=== PATIENT | male | born 1960 | race Caucasian/White ===

== ENCOUNTER 2023-01-01 20:12 | Emergency (ER) | payer OTHER ==
--- NOTE | 2023-01-01 20:15 | ERPHSYRPT ---
- History of Present Illness Time Seen by Provider: 01/01/23 20:14 Historian: patient Exam Limitations: no limitations Physician History: Pt c/o chest pain; a few episodes during last few weeks. Pain located left chest. + radiation to right chest Described as tightness Both at rest and on exertion, but worse w/ exertion Possible TIA last week Room spinning while putting a futon together Feels like heart is racing Chest tightness for the past hour No ASA or Nitro taken today No cardiac hx No swelling No focal weakness, speech difficulties, numbness/tingling Timing/Duration: today Activities at Onset: activity (putting a futon together) Quality: tightness Location: central Chest Pain Radiation: no radiation Severity of Pain-Max: moderate Severity of Pain-Current: moderate Modifying Factors: Improves With: rest. Worsens With: exertion Associated Symptoms: palpitations, fatigue, weakness, headache, dizziness, No nausea, No vomiting, No shortness of breath, No cough, No diaphoresis, No chills, No fever Prior Chest Pain/Cardiac Workup: no prior chest pain, no prior cardiac workup Nitro Today/Relief: no nitro taken today Aspirin Treatment Today: 81 mg x 1, provided at home Allergies/Adverse Reactions: No Known Drug Allergies Allergy (Unverified 01/01/23 20:34) Home Medications: Aspirin EC 81 mg [Ecotrin 81 mg] 81 mg PO DAILY 01/01/23 [History] Atorvastatin Calcium 10 mg PO DAILY 01/01/23 [History] Ezetimibe 10 mg [Zetia 10 MG] 10 mg PO DAILY 01/01/23 [History] Garlic 1,000 mg PO DAILY 01/01/23 [History] Mecobalamin [B12 Active] 1,000 mcg PO DAILY 01/01/23 [History] Metformin HCl 500 mg [Glucophage 500 MG] 500 mg PO DAILY 01/01/23 [History] Montelukast Sodium 10 mg [Singulair 10 MG] 10 mg PO DAILY 01/01/23 [History] Multivitamin [Multivitamins] 1 each PO DAILY 01/01/23 [History] Sertraline HCl 50 mg [Zoloft 50 mg Tablet] 50 mg PO DAILY 01/01/23 [History] Tizanidine HCl 4 mg [Zanaflex 4 MG] 4 mg PO DAILY 01/01/23 [History] - Review of Systems Constitutional: Fatigue, Weakness, No Fever, No Chills Eyes: No Symptoms Ears, Nose, & Throat: No Symptoms Respiratory: Dyspnea on Exertion (VANG), No Cough, No Wheezing Cardiac: Chest Pain, Palpitations, No Edema, No Syncope, No Orthopnea, No PND Abdominal/Gastrointestinal: No Symptoms Genitourinary Symptoms: No Symptoms Musculoskeletal: No Symptoms Skin: No Symptoms Neurological: Dizziness, Headache, Vertigo, No Focal Weakness, No Gait Changes, No Paralysis, No Parasthesia, No Seizure, No Sensory Changes, No Speech Changes, No Tremors Psychological: No Symptoms Endocrine: No Symptoms Hematologic/Lymphatic: No Symptoms Immunological/Allergic: No Symptoms All Other Systems: Reviewed and Negative - Nursing Vital Signs Nursing Vital Signs: Initial Vital Signs Temperature 98.2 F 01/01/23 20:13 Pulse Rate 63 01/01/23 20:13 Respiratory Rate 17 01/01/23 20:13 Blood Pressure 147/91 01/01/23 20:13 O2 Sat by Pulse Oximetry 100 01/01/23 20:13 Pain Scale Pain Intensity 4 - Physical Exam General Appearance: no apparent distress Eye Exam: PERRL/EOMI, eyes nml inspection Ears, Nose, Throat Exam: normal ENT inspection, pharynx normal, moist mucous membranes, other (b/l bulging TM w/o erythema, + light reflex) Neck Exam: normal inspection, non-tender, supple, full range of motion, No thyromegaly Respiratory Exam: normal breath sounds, lungs clear, airway intact, No chest tenderness, No respiratory distress Cardiovascular Exam: regular rate/rhythm, normal heart sounds, capillary refill <2 sec, No edema Gastrointestinal/Abdomen Exam: soft, normal bowel sounds, No tenderness, No distention, No mass, No guarding, No rebound Extremity Exam: normal inspection, normal range of motion, No calf tenderness, No parasthesia, No paralysis, No joint swelling, No pedal edema, No swelling, No tenderness Neurologic Exam: alert, oriented x 3, cooperative, superintendent transmission II-XII nml as tested, normal mood/affect, nml cerebellar function, sensation nml Skin Exam: normal color, warm, dry, No rash SpO2 Interpretation: normal O2 Delivery: Room Air - Course Nursing assessment & vital signs reviewed: Yes EKG Interpreted by Me: RATE (60), Sinus Rhythm, NORMAL AXIS, NORMAL INTERVALS, NORMAL ST-T - Radiology Exams Chest X-ray Interpretation: Interpreted by me, Other (mild hyperinflation, no infiltrate) Ordered Tests: Active Orders 24 hr Category Date Time Status Certified Social Workers In Health Care STAT Care 01/01/23 20:43 Active EKG-ER Only STAT Care 01/01/23 20:42 Active IV Insertion STAT Care 01/01/23 20:42 Active Pulse Oximetry (ED) STAT Care 01/01/23 20:48 Active CHEST 2 VIEWS (PA AND LAT) Stat Exams 01/01/23 20:43 Taken CBC W DIFF Stat Lab 01/01/23 20:53 Completed CMP Stat Lab 01/01/23 20:53 Completed LIPID PROFILE Stat Lab 01/01/23 20:53 Completed TROPONIN Q4H Lab 01/01/23 20:53 Completed TROPONIN Q4H Lab 01/02/23 00:45 Ordered TROPONIN Q4H Lab 01/02/23 04:45 Ordered TSH [TSH, 3RD Generation] Stat Lab 01/01/23 20:57 Received Medication Summary Generic Name Dose Route Start Last Admin Trade Name Freq PRN Reason Stop Dose Admin Sodium Chloride 1,000 mls @ 999 mls/hr 01/01/23 20:48 01/01/23 20:54 Sodium Chloride 0.9% 1000 Ml IV 01/01/23 21:48 999 mls/hr .Q1H1M STA Administration Discontinued Medications Generic Name Dose Route Start Last Admin Trade Name Freq PRN Reason Stop Dose Admin Aspirin 324 mg 01/01/23 20:48 01/01/23 20:54 Aspirin 81 Mg Tab.Chew PO 01/01/23 20:49 324 mg STAT ONE Administration Aspirin Confirm 01/01/23 20:52 Aspirin 81 Mg Tab.Chew Administered 01/01/23 20:53 Dose 324 mg .ROUTE .STK-MED ONE Sodium Chloride Confirm 01/01/23 20:52 Sodium Chloride 0.9% 1000 Ml Administered 01/01/23 20:53 Dose 1,000 mls @ ud .ROUTE .STK-MED ONE Meclizine HCl 25 mg 01/01/23 20:59 01/01/23 21:19 Meclizine Hcl 25 Mg Tablet PO 01/01/23 21:00 25 mg STAT ONE Administration Meclizine HCl Confirm 01/01/23 21:19 Meclizine Hcl 25 Mg Tablet Administered 01/01/23 21:20 Dose 25 mg .ROUTE .STK-MED ONE Nitroglycerin 0.4 mg 01/01/23 20:48 01/01/23 20:54 Nitroglycerin 0.4 Mg (Ed) 0.4 Mg Tab.Subl SL 01/01/23 20:49 0.4 mg STAT ONE Administration Nitroglycerin Confirm 01/01/23 20:52 Nitroglycerin 0.4 Mg (Ed) 0.4 Mg Tab.Subl Administered 01/01/23 20:53 Dose 0.4 mg SL .STK-MED ONE Lab/Rad Data: Laboratory Result Diagrams 01/01/23 20:53 01/01/23 20:53 Laboratory Results 01/01/23 01/01/23 01/01/23 Range/Units 20:53 20:53 20:53 WBC (4.0-10.5) x10^3/uL RBC (4.1-5.6) x10^6/uL Hgb (12.5-18.0) g/dL Hct (42-50) % MCV (78-100) fL MCH (26-32) pg MCHC (32-36) g/dL RDW (11.5-14.0) % Plt Count (150-450) x10^3/uL MPV (7.5-11.0) fL Gran % (36.0-66.0) % Immature Gran % (Auto) (0.00-0.4) % Nucleat RBC Rel Count (0.00-0.1) % Eos # (Auto) (0-0.5) x10^3/uL Immature Gran # (Auto) (0.00-0.03) x10^3u/L Absolute Lymphs (auto) (1.0-4.6) x10^3/uL Absolute Monos (auto) (0.0-1.3) x10^3/uL Absolute Nucleated RBC (0.00-0.01) x10^3u/L Lymphocytes % (24.0-44.0) % Monocytes % (0.0-12.0) % Eosinophils % (0.00-5.0) % Basophils % (0.0-0.4) % Absolute Granulocytes (1.4-6.9) x10^3/uL Basophils # (0-0.4) x10^3/uL Sodium 139 (137-145) mmol/L Potassium 3.9 (3.5-5.1) mmol/L Chloride 106 (98-107) mmol/L Carbon Dioxide 25 (22-30) mmol/L Anion Gap 12.2 (5-15) MEQ/L BUN 17 (9-20) mg/dL Creatinine 0.99 (0.66-1.25) mg/dL Estimated GFR > 60.0 ML/MIN Glucose 120 H (74-106) mg/dL Hemoglobin A1c 6.48 H (4.5-6.0) % Calcium 8.8 (8.4-10.2) mg/dL Total Bilirubin 0.60 (0.2-1.3) mg/dL AST 41 (17-59) U/L ALT 39 (0-50) U/L Alkaline Phosphatase 71 (38-126) U/L Troponin I < 0.012 (0.000-0.034) ng/mL Serum Total Protein 7.3 (6.3-8.2) g/dL Albumin 4.4 (3.5-5.0) g/dL Triglycerides 286 H (30-150) mg/dL Cholesterol 114 (50-200) mg/dL LDL Cholesterol 44 (30-100) mg/dL HDL Cholesterol 36 L (40-60) mg/dL Heart Disease Risk Ratio 3.2 01/01/23 Range/Units 20:53 WBC 6.6 (4.0-10.5) x10^3/uL RBC 4.73 (4.1-5.6) x10^6/uL Hgb 14.9 (12.5-18.0) g/dL Hct 42.7 (42-50) % MCV 90.3 (78-100) fL MCH 31.5 (26-32) pg MCHC 34.9 (32-36) g/dL RDW 12.6 (11.5-14.0) % Plt Count 195 (150-450) x10^3/uL MPV 10.5 (7.5-11.0) fL Gran % 38.5 (36.0-66.0) % Immature Gran % (Auto) 0.3 (0.00-0.4) % Nucleat RBC Rel Count 0.0 (0.00-0.1) % Eos # (Auto) 0.41 (0-0.5) x10^3/uL Immature Gran # (Auto) 0.02 (0.00-0.03) x10^3u/L Absolute Lymphs (auto) 2.95 (1.0-4.6) x10^3/uL Absolute Monos (auto) 0.63 (0.0-1.3) x10^3/uL Absolute Nucleated RBC 0.00 (0.00-0.01) x10^3u/L Lymphocytes % 44.6 H (24.0-44.0) % Monocytes % 9.5 (0.0-12.0) % Eosinophils % 6.2 H (0.00-5.0) % Basophils % 0.9 (0.0-0.4) % Absolute Granulocytes 2.54 (1.4-6.9) x10^3/uL Basophils # 0.06 (0-0.4) x10^3/uL Sodium (137-145) mmol/L Potassium (3.5-5.1) mmol/L Chloride (98-107) mmol/L Carbon Dioxide (22-30) mmol/L Anion Gap (5-15) MEQ/L BUN (9-20) mg/dL Creatinine (0.66-1.25) mg/dL Estimated GFR ML/MIN Glucose (74-106) mg/dL Hemoglobin A1c (4.5-6.0) % Calcium (8.4-10.2) mg/dL Total Bilirubin (0.2-1.3) mg/dL AST (17-59) U/L ALT (0-50) U/L Alkaline Phosphatase (38-126) U/L Troponin I (0.000-0.034) ng/mL Serum Total Protein (6.3-8.2) g/dL Albumin (3.5-5.0) g/dL Triglycerides (30-150) mg/dL Cholesterol (50-200) mg/dL LDL Cholesterol (30-100) mg/dL HDL Cholesterol (40-60) mg/dL Heart Disease Risk Ratio - Progress Progress: improved Air Movement: good Progress Note: 01/01/23 21:30 CBC, CMP wnl, Troponin and EKG wnl. Triglycerides 286, HDL 36, advised patient to decrease fatty food intake and increase exercise to 150 minutes per week. Hb A1c 6.48. CXR showed no acute abnormality. Due to low heart score w/ low concern for cardiac etiology decision was made to d/c home at this time. Reported sxs worse w/ sharp movements of head consistent w/ benign paroxysmal positional vertigo Patient education and reassurance. Meclizine prn. Consider vestibular therapy Blood Culture(s) Obtained: No Antibiotics given: No Counseled pt/family regarding: lab results, diagnosis, need for follow-up, rad results Medical Desision Making - Diagnostic Testing Diagnostic test were ordered, analyzed, and reviewed by me: Yes Radiological Interpretation: Interpreted by me - Risk of complications The pt has a mod risk of morbidity or mortality based on: Need for prescription drug management - Departure Departure Disposition: Home Clinical Impression: BPPV (benign paroxysmal positional vertigo), DMII (diabetes mellitus, type 2), Hypertriglyceridemia without hypercholesterolemia, Chest tightness Condition: Good Critical Care Time: No Referrals: KLAUS DESIR MD [Primary Care Provider] - Follow up/PCP as directed Instructions: Vestibular Exercises, Vertigo ED Prescriptions: Meclizine HCl 25 mg [Antivert 25 mg] 25 mg PO Q6H PRN 7 Days #28 tablet PRN Reason: Dizziness
[2023-01-01] MEDS ORDERED: Nitrostat 0.4 MG (ED) SL ONE ×2 (20:48→20:52)
[2023-01-01] MEDS ORDERED: Sodium Chloride 0.9% 1000 ML 1,000 ML IV STA (20:48)
[2023-01-01] MEDS ORDERED: BABY ASPIRIN 81 MG CHEW PO ONE (20:48)
[2023-01-01] MEDS ORDERED: Sodium Chloride 0.9% 1000 ML 1,000 ML ONE (20:52)
[2023-01-01] MEDS ORDERED: BABY ASPIRIN 81 MG CHEW ONE (20:52)
[2023-01-01 20:58] LABS: Absolute Neutrophil Ct (ANC) 2.54 x10^3/uL (1.4-6.9); BASOPHIL % 0.9 % (0.0-0.4); Basophil (Absolute #) 0.06 x10^3/uL (0-0.4); Eosinophil % 6.2 % (0.00-5.0); Eosinophil (Absolute #) 0.41 x10^3/uL (0-0.5); Hematocrit 42.7 % (42-50); Hemoglobin 14.9 g/dL (12.5-18.0); IMMATURE GRAN # 0.02 x10^3u/L (0.00-0.03); IMMATURE GRAN % 0.3 % (0.00-0.4); Lymphocyte (Absolute #) 2.95 x10^3/uL (1.0-4.6); Lymphocytes % 44.6 % (24.0-44.0); Mean Cell Volume 90.3 fL (78-100); Mean Corpuscular Hemoglobin 31.5 pg (26-32); Mean Corpuscular Hgb Concent. 34.9 g/dL (32-36); Mean Platelet Volume 10.5 fL (7.5-11.0); Monocyte (Absolute #) 0.63 x10^3/uL (0.0-1.3); Monocytes % 9.5 % (0.0-12.0); Neutrophil % 38.5 % (36.0-66.0); Platelet Count 195 x10^3/uL (150-450); Red Blood Count 4.73 x10^6/uL (4.1-5.6); Red Cell Distribution Width 12.6 % (11.5-14.0); White Blood Count 6.6 x10^3/uL (4.0-10.5)
[2023-01-01] MEDS ORDERED: ANTIVERT 25 MG PO ONE (20:59)
[2023-01-01 21:16] LABS: ALBUMIN 4.4 g/dL (3.5-5.0); ALKALINE PHOSPHATASE 71 U/L (38-126); ANION GAP 12.2 MEQ/L (5-15); BLOOD UREA NITROGEN 17 mg/dL (9-20); CHLORIDE 106 mmol/L (98-107); Calcium 8.8 mg/dL (8.4-10.2); Carbon Dioxide 25 mmol/L (22-30); Cholesterol 114 mg/dL (50-200); Creatinine 1 0.99 mg/dL (0.66-1.25); EST GLOMERULAR FILTRATION RATE > 60.0 ML/MIN; Glucose 120 mg/dL (74-106); HDL CHOLESTEROL 36 mg/dL (40-60); LDL, DIRECT 44 mg/dL (30-100); Potassium 3.9 mmol/L (3.5-5.1); Risk Ratio 3.2; SGOT/AST 41 U/L (17-59); SGPT/ALT 39 U/L (0-50); SODIUM 139 mmol/L (137-145); TRIGLYCERIDE 286 mg/dL (30-150); Total Protein 7.3 g/dL (6.3-8.2)
[2023-01-01] MEDS ORDERED: ANTIVERT 25 MG ONE (21:19)
[2023-01-01 21:24] VITALS: O2SAT 99
[2023-01-01 21:45] VITALS: BP 116/72; PULSE 62
--- NOTE | 2023-01-02 07:47 | XRAY ---
Indication: Chest pain. Comparison: None AP/lateral chest hyperinflated and clear. Heart and mediastinal structures within normal limits. Bony thorax intact. Impression: Nonacute hyperinflated chest.
== END 2023-01-01 21:44 | disposition home or self-care (01) ==
LOC: ED 20:12
DX: H81.10 Benign paroxysmal vertigo, unspecified ear (principal); E11.9 Type 2 diabetes mellitus without complications; E78.1 Pure hyperglyceridemia; R07.9 Chest pain, unspecified; Z79.84 Long term (current) use of oral hypoglycemic drugs; Z79.899 Other long term (current) drug therapy
CPT/HCPCS: 36000; 36415; 71046; 80053; 80061; 83036; 83721; 84443; 84484; 85025; 93005; 93041; 94760; 99284; A9270-GY